=== PATIENT | male | born 1965 | race Two or more races ===

== ENCOUNTER 2016-07-18 17:50 | Emergency (ER) | payer MEDICARE, OTHER ==
--- NOTE | ~2016-07-18 | CR141 ---
[facility] A Service of [facility] RADIOLOGY TEXT RESULTS PATIENT: IVAN PANCHAL LOCATION: [facility] : 67 UNIT #: [id number] AGE: [address]: John Heck MD SEX: M ORDER DR: [id number] [facility] [address] [place], [place] [address] [id number] E MR#: [id number] Acc #: [id number] NAME: IVAN PANCHAL : 1965 SEX: M STUDY DATE/TIME: 07/18/2016 16:57 UNIT: VIJAY ROOM: STUDY DESCRIPTION: CR Hand Min 3 Views Lt Attending Physician: John Heck M.D. Referring Physician: [facility] Ordering Physician: Ed Doctor [id number] [facility] Primary Care Physician: [facility] MEDICAL IMAGING REPORT This report is preliminary unless electronic signature is present REVISED REPORT SEE ADDENDUM EXAM Left hand HISTORY Left hand pain with laceration from metal plate across top of hand. This happened today. FINDINGS Three views of the left hand were obtained. There is an acute slightly displaced fracture through the mid portion of the first distal phalanx. There seem to be bandages around the second and third digits. The other bones are normal. IMPRESSION 1. Slightly displaced acute fracture through the mid portion of the first distal phalanx. 2. Bandages and possible skin lacerations are present involving the second and third digits. Dictated by... Magdiel Washburn M.D. THIS IS AN ELECTRONICALLY VERIFIED REPORT Magdiel Washburn M.D. at 07/19/2016 11:20 AM DANIEL/rebecca [facility] A Service [facility] RADIOLOGY TEXT RESULTS PATIENT: IVAN PANCHAL LOCATION: [facility] : 67 UNIT #: [id number] AGE: [address]: John Heck MD SEX: M ORDER DR: TD: 07/19/2016 09:57 JOB #: [id number] ADDENDUM There is also an oblique fracture through the tuft of the second digit. Dictated by... Magdiel Washburn M.D. THIS IS AN ELECTRONICALLY VERIFIED REPORT Magdiel Washburn M.D. at 07/21/2016 9:47 AM FEL/angela TD: 07/19/2016 09:57 JOB #: [id number] CC: Vicky/babar Please Delete MEDICAL IMAGING REPORT COPY
[~2016-07-18 17:50] MED LIST: BENTYL20 M1 PO; FLEXERIL10 MG PO; HYDROCODONE/APA1 T15 PO; LEVEMIR; LEVEMIR SUBQ; METFORMIN HCL500 M1 PO; NAPROSYN375 MG PO; PERCOCET PO; PHENERGAN PO; PHENERGAN25 MG PO; PROTONIX PO; STERAPRED5 MG/DOSE1 PO; TIZANIDINE HCL2 MG PO; UNKNOWN PAIN MED; VICODIN 5/500 T1 TAB PO; VICODIN ES 7.51 EACH PO; VITAMIN D50000 UNIT PO; VOLTAREN25 MG DOB; [UNRECOGNIZED DRUG - REMARK]
[2016-07-18 17:54] LABS: BASOPHIL% 0.5 % (0-2.5); EOSINOPHIL# 0.2 X10e3 (0-0.7); EOSINOPHIL% 2.6 % (0.0-7.0); HEMATOCRIT 39.8 % (38.0-50.0); HEMOGLOBIN 13.8 gm/dL (13.0-16.0); LYMPHOCYTE# 3.7 X10e3 (1.0-3.5); LYMPHOCYTE% 46.7 % (17.0-45.0); MEAN CELL VOLUME 91.2 FL (83-96); MEAN CORPUSCULAR HEMOGLOBIN 31.6 PG (28-34); MEAN CORPUSCULAR HGB CONC 34.7 g/dL (30-36); MEAN PLATELET VOLUME 7.8 FL (6.5-11.5); MONOCYTE# 0.6 X10e3 (0-1.0); MONOCYTE% 8.1 % (3.0-12.0); NEUTROPHIL# 3.3 X10e3 (1.5-7.1); NEUTROPHIL% 42.1 % (40-75); PLATELET COUNT 262 X10e3 (140-420); RED BLOOD COUNT 4.36 X10e (3.90-5.60); RED CELL DISTRIBUTION WIDTH 12.8 % (11.0-15.5); WHITE BLOOD COUNT 7.9 X10e3 (4.0-10.5)
[2016-07-18 17:59] LABS: DIFF IND NO
[2016-07-18 18:09] LABS: PARTIAL THROMBOPLASTIN TIME 23.5 SECONDS (23.5-31.3); PROTHROMBIN TIME (PATIENT) 10.4 SECONDS (9.6-11.5)
[2016-07-18 18:15] LABS: ALBUMIN SERUM 4.3 g/dL (3.5-5.0); ALKALINE PHOSPHATASE 64 U/L (32-92); ALT (SGPT) 48 U/L (10-40); AST (SGOT) 35 U/L (10-42); BILIRUBIN,TOTAL 0.7 mg/dL (0.2-2.0); BLOOD UREA NITROGEN 17 mg/dL (9-23); BUN/CREATININE RATIO 15.45; CALCIUM SERUM 8.5 mg/dL (8.4-10.2); CARBON DIOXIDE 25 mmol/L (22-31); CHLORIDE 109 mmol/L (100-111); CREATININE SERUM 1.1 mg/dL (0.6-1.4); GLOM FILT RATE Estimated ABOVE60 mL/min (>60); GLUCOSE FASTING 199 mg/dL (70-110); POTASSIUM 3.1 mmol/L (3.5-5.1); SODIUM 138 mmol/L (135-145)
== END 2016-07-18 19:24 ==
LOC: CED 17:50
PROVIDERS: Emergency Medicine
DX: S62.522A Displaced fracture of distal phalanx of left thumb, initial encounter for closed fracture (principal); S62.631A Displaced fracture of distal phalanx of left index finger, initial encounter for closed fracture; S61.213A Laceration without foreign body of left middle finger without damage to nail, initial encounter; Z88.8 Allergy status to other drugs, medicaments and biological substances; W23.0XXA Caught, crushed, jammed, or pinched between moving objects, initial encounter; Y92.69 Other specified industrial and construction area as the place of occurrence of the external cause; Y99.0 Civilian activity done for income or pay
CPT/HCPCS: 73130; 80053; 85025; 85610; 85730; 96361; 96374; 96375; 99285; J0690; J1170; J2270; J2405

== ENCOUNTER 2016-08-30 12:16 | Emergency (ER) | payer MEDICARE, OTHER | END 2016-08-30 12:20 | disposition home or self-care (01) | LOC: CED 12:16 | DX: S41.102A Unspecified open wound of left upper arm, initial encounter (principal); E11.9 Type 2 diabetes mellitus without complications; Z88.8 Allergy status to other drugs, medicaments and biological substances; X58.XXXA Exposure to other specified factors, initial encounter; Y92.89 Other specified places as the place of occurrence of the external cause | CPT/HCPCS: 99282 ==

== ENCOUNTER 2017-01-02 09:53 | Emergency (ER) | payer MEDICARE, OTHER ==
[~2017-01-02] VITALS: Ht 167.6 cm; Wt 85.3 kg
--- NOTE | ~2017-01-02 | CR58 ---
[facility] A Service of [facility] RADIOLOGY TEXT RESULTS PATIENT: IVAN PANCHAL LOCATION: [facility] : 67 UNIT #: [id number] AGE: [address]: Radha Castillo SEX: M ORDER DR: [id number] [facility] [address] [place], [place] [address] [id number] E MR#: [id number] Acc #: [id number] NAME: IVAN PANCHAL : 1965 SEX: M STUDY DATE/TIME: 01/02/2017 10:52 UNIT: [facility] ROOM: STUDY DESCRIPTION: CR Cervical Spine 2 or 3 Views Attending Physician: Radha Castillo P.A.-C. Ordering Physician: Radha Castillo P.A.-C. Primary Care Physician: Sintia Truong M.D. MEDICAL IMAGING REPORT This report is preliminary unless electronic signature is present EXAM C-spine 3 views HISTORY Neck pain for 3 weeks. FINDINGS 3 views of the cervical spine demonstrates multilevel degenerative disc changes most pronounced at C6-7 with disc space narrowing and anterior and posterior hypertrophic change. Prominent posterior osteophyte also noted at C5-6. No fracture. No malalignment. The atlantoaxial joint unremarkable. The prevertebral soft tissues appear normal. Upper thorax unremarkable. IMPRESSION C5-6, C6-7 degenerative disc disease. h Dictated by... Fariba Irwin M.D. THIS IS AN ELECTRONICALLY VERIFIED REPORT Fariba Irwin M.D. at 01/02/2017 5:02 PM John TD: 01/02/2017 15:08 JOB #: [id number] MEDICAL IMAGING REPORT Page 1 of 1 COPY
== END 2017-01-02 12:15 | disposition home or self-care (01) ==
LOC: CFTX 09:53 → CED 09:53 → CFTX 11:56
DX: G89.29 Other chronic pain (principal); M54.2 Cervicalgia; M25.512 Pain in left shoulder; E11.9 Type 2 diabetes mellitus without complications; I10 Essential (primary) hypertension; Z90.49 Acquired absence of other specified parts of digestive tract; Z79.899 Other long term (current) drug therapy; Z88.8 Allergy status to other drugs, medicaments and biological substances
CPT/HCPCS: 72040; 96372; 99283; J1885